=== PATIENT | female | born 1980 | race Two or more races ===

== ENCOUNTER 2018-12-05 15:37 | Emergency (ER) | payer OTHER ==
[2018-12-05 15:42] VITALS: BP 148/90; PULSE 86; TEMP 97.7; BMI 20.3
[2018-12-05] MEDS ORDERED: ONDANSETRON 4 MG/2 ML VIAL IVPUSH ONE (15:42)
[2018-12-05] MEDS ORDERED: SODIUM CHLORIDE 1,000 ML IV STA (15:42)
[2018-12-05] MEDS ORDERED: morphine CARPU-JECT 2 MG/1 ML DISP.SYRIN IVPUSH ONE (15:45)
--- NOTE | 2018-12-05 15:45 | PDOC ---
Rapid Medical Evaluation Chief Complaint: Vaginal Bleeding Time Seen by Provider: 12/05/18 15:38 Medical Evaluation: Allergies Allergy/AdvReac Type Severity Reaction Status Date / Time No Known Allergies Allergy Verified 12/05/18 15:42 Vital Signs Temp Pulse Resp BP Pulse Ox 97.7 F 86 18 148/90 100 12/05/18 15:40 12/05/18 15:40 12/05/18 15:40 12/05/18 15:40 12/05/18 15:40 12/05/18 15:44 Pt c/o: Lower abd cramping x 3 hrs with nausea, hx q monthly secondary to fibroids and endometriosis, currently on OCP Pt on brief exam: vss, lower abd tenderness Pt ordered for: labs, urine, ivf, ms04, and zofran Pt to proceed to the ED Discharge Disposition - Diagnosis Fibroids - Discharge Dispostion Disposition: HOME Condition at time of disposition: Stable - Prescriptions Prescriptions: Diclofenac Sodium 75 mg PO BID #20 tablet.dr - Referrals Referrals: Anisha Connolly MD [Staff Physician] - - Patient Instructions Printed Discharge Instructions: DI for Uterine Fibroids - Post Discharge Activity
[2018-12-05] MEDS ORDERED: morphine SULFATE 4 MG/ML VIAL ONE (16:26)
[2018-12-05] MEDS ORDERED: ONDANSETRON 4 MG/2 ML VIAL ONE (16:26)
--- NOTE | 2018-12-05 16:35 | PDOC ---
History of Present Illness - General Chief Complaint: Vaginal Bleeding Stated Complaint: EDOMETRIOSIS/FIBROIDES Time Seen by Provider: 12/05/18 15:38 - History of Present Illness Initial Comments: 12/05/18 16:27 CHIEF COMPLAINT: lower abdominal pain HISTORY OF PRESENT ILLNESS: with hx of endometriosis and fibroids presents to ED with significant lower abdominal pain. Patient reports she has these symptoms every other month during her period, and this episode started today approximately a couple hours ago when her period started. Patient reports she is followed by an OB at [facility], Dr. White and had an US completed 2 weeks ago. No recent travel or sick contacts. PAST MEDICAL HISTORY: Denies past medical history FAMILY HISTORY: Denies SOCIAL HISTORY: Denies tobacco, alcohol, illicit drug use. SURGICAL HISTORY: Denies ALLERGIES: No known drug allergies REVIEW OF SYSTEMS General/Constitutional: Denies fever or chills. Denies weakness, weight change. HEENT: Denies change in vision. Denies ear pain or discharge. Denies sore throat. Cardiovascular: Denies chest pain or shortness of breath. Respiratory: Denies cough, wheezing, or hemoptysis. Gastrointestinal: Pelvic pain with nausea and vomiting. Denies diarrhea or constipation. Denies rectal bleeding. Genitourinary: Denies dysuria, frequency, or change in urination. Musculoskeletal: Denies joint or muscle swelling or pain. Denies neck or back pain. Skin and breasts: Denies rash or easy bruising. Neurologic: Denies headache, vertigo, loss of consciousness, or loss of sensation. PHYSICAL EXAM General Appearance: Well-appearing, appropriately dressed. No apparent distress. HEENT: EOMI, PERRLA, normal ENT inspection, normal voice, TMs normal, pharynx normal. No conjunctival pallor. No photophobia, scleral icterus. Respiratory/Chest: Lungs CTAB. No shortness of breath, chest tenderness, respiratory distress, accessory muscle use. No crackles, rales, rhonchi, stridor , wheezing, dullness Cardiovascular: RRR. S1, S2. Gastrointestinal/Abdominal: Normal bowel sounds. Abdomen soft, non-distended. No tenderness or rebound tenderness. No organomegaly, pulsatile mass, guarding , hernia, hepatomegaly, splenomegaly. Musculoskeletal/Extremities: Normal inspection. FROM of all extremities, normal capillary refill. Pelvis Stable. No CVA tenderness. No tenderness to extremities, pedal edema, swelling, erythema or deformity. Integumentary: Appropriate color, dry, warm. No cyanosis, erythema, jaundice or rash Neurologic: roll on man II-XII intact. Fully oriented, alert. Appropriate mood/affect. Motor strength 5/5. No appreciable EOM palsy, facial droop or sensory deficit. 12/05/18 16:39 Past History - Past Medical History Allergies/Adverse Reactions: Allergies Allergy/AdvReac Type Severity Reaction Status Date / Time No Known Allergies Allergy Verified 12/05/18 15:42 Home Medications: Ambulatory Orders Diclofenac Sodium 75 mg PO BID #20 tablet. 12/05/18 - Suicide/Smoking/Psychosocial Hx Smoking History: Never smoked Have you smoked in the past 12 months: No Information on smoking cessation initiated: No Hx Alcohol Use: No Drug/Substance Use Hx: No *Physical Exam - Vital Signs Last Vital Signs Temp Pulse Resp BP Pulse Ox 97.7 F 86 18 148/90 100 12/05/18 15:40 12/05/18 15:40 12/05/18 15:40 12/05/18 15:40 12/05/18 15:40 ED Treatment Course - LABORATORY CBC & Chemistry Diagram: 12/05/18 16:22 12/05/18 16:22 Medical Decision Making - Medical Decision Making 12/05/18 16:39 with hx of endometriosis and fibroids presents to ED with significant lower abdominal pain. -labs -urine -US 12/05/18 19:29 Patient given morphine ordered in RME. Continues to complain of pain. US shows multiple fibroids to uterus. Toradol given. Patient states she will f/u with her [employer]INATOR for continued mgmt of her fibroids. States she has considered hysterectomy given significant hx of fibroids and endometriosis. Advised patient of sxs for return to ER. *DC/Admit/Observation/Transfer Diagnosis at time of Disposition: Fibroids - Discharge Dispostion Disposition: HOME Condition at time of disposition: Stable Decision to Admit order: No - Prescriptions Prescriptions: Diclofenac Sodium 75 mg PO BID #20 tablet.dr - Referrals Referrals: Anisha Connolly MD [Staff Physician] - - Patient Instructions Printed Discharge Instructions: DI for Uterine Fibroids - Post Discharge Activity
[2018-12-05 16:36] LABS: BASO % 0.5 % (0-2.0); EOS % 1.4 % (0-4.5); HEMATOCRIT 38.5 % (32.4-45.2); HEMOGLOBIN 12.7 GM/dL (10.7-15.3); MCH 28.3 pg (25.7-33.7); MCHC 32.9 g/dl (32.0-36.0); MEAN PLT VOLUME 6.4 fl (7.5-11.1); MONO % 4.3 % (3.8-10.2); NEUT % 77.8 % (42.8-82.8); PLATELET COUNT 520 K/MM3 (134-434); RBC 4.48 M/mm3 (3.60-5.2); RDW 13.3 % (11.6-15.6); WHITE BLOOD COUNT 9.8 K/mm3 (4.0-10.0)
[2018-12-05] MEDS ORDERED: DIPHTH,PERTUSS(ACELL),TET 0.5 ML DISP.SYRIN IM ONE (16:44)
[2018-12-05 17:07] LABS: ALBUMIN 3.2 g/dl (3.4-5.0); BILIRUBIN,TOTAL 0.5 mg/dL (0.2-1); BLOOD UREA NITROGEN 7.5 mg/dL (7-18); CALCIUM 9.4 mg/dL (8.5-10.1); CREATININE 0.7 mg/dL (0.55-1.3); TOT PROT 7.6 g/dl (6.4-8.2)
[2018-12-05 17:08] LABS: POTASSIUM 4.4 mmol/L (3.5-5.1)
[2018-12-05] MEDS ORDERED: KETOROLAC TROMETHAMINE 30 MG/1 ML VIAL IM ONE (17:44)
[2018-12-05 17:52] LABS: EPI CELLS 11.8 /HPF (0-5/HPF); HYALINE CASTS 15 /lpf (0-8); PH,URINE 6.5 (5.0-8.0); URINE APPEARANCE CLEAR; URINE BACTERIA 133.6 /hpf (NEGATIVE); URINE BILIRUBIN NEGATIVE (NEGATIVE); URINE COLOR YELLOW; URINE GLUCOSE (UA) NEGATIVE (NEGATIVE); URINE KETONE 2+ (NEGATIVE); URINE LEUK ESTERASE NEGATIVE (NEGATIVE); URINE NITRITE NEGATIVE (NEGATIVE); URINE PROTEIN TRACE (NEGATIVE); URINE RBC 4 /hpf (0-4); URINE WBC 4 /hpf (0-5)
[2018-12-05] MEDS ORDERED: KETOROLAC TROMETHAMINE 30 MG/1 ML VIAL ONE (18:29)
[2018-12-05 19:08] LABS: PLATELET ESTIMATE INCREASED
== END 2018-12-05 19:18 | disposition home or self-care (01) ==
LOC: JER 15:37
PROC: 3E0333Z Introduction of Anti-inflammatory into Peripheral Vein, Percutaneous Approach (ICD-10-PCS; principal; 2018-12-05)
PROC: 3E033NZ Introduction of Analgesics, Hypnotics, Sedatives into Peripheral Vein, Percutaneous Approach (ICD-10-PCS; 2018-12-05)
PROC: 3E033GC Introduction of Other Therapeutic Substance into Peripheral Vein, Percutaneous Approach (ICD-10-PCS; 2018-12-05)
DX: D25.9 Leiomyoma of uterus, unspecified (principal); R10.30 Lower abdominal pain, unspecified
CPT/HCPCS: 36415; 76856-TC; 80053; 81003; 84703; 85025; 87086; 87491; 87591; 99282-25

== ENCOUNTER 2019-05-06 04:08 | Emergency (ER) | payer OTHER ==
--- NOTE | 2019-05-06 04:12 | PDOC ---
History of Present Illness - General Stated Complaint: FLU-LIKE SYMPTOMS History Source: Patient Exam Limitations: No Limitations - History of Present Illness Initial Comments: 05/06/19 04:11 PCP: None HPI: 38yo F PMH GERD, endometriosis and fibroids presenting with cough, fever, chills, vomiting, diarrhea, headache, throat pain, nasal congestion, cough, body aches, since midday yesterday (16 hours). Patient has two nieces recently diagnosed with the flu as well as her own child. She presents to the ED for evaluation because of a fever of 103 at home. She did not take any antipyretic medications. Only took some Mucinex at 10PM. Reports people are still sick at home. No bloody or dark emesis / stool. Non-productive cough. All: NKDA Meds: OCPs PMH: as above PSH: Fibroid removal Past History - Travel Traveled outside of the country in the last 30 days: No Close contact w/someone who was outside of country & ill: No - Past Medical History Allergies/Adverse Reactions: Allergies Allergy/AdvReac Type Severity Reaction Status Date / Time No Known Allergies Allergy Verified 05/06/19 04:44 Home Medications: Ambulatory Orders Diclofenac Sodium 75 mg PO BID #20 tablet. 12/05/18 Oseltamivir Phosphate [Tamiflu] 75 mg PO BID #10 capsule 05/06/19 COPD: No - Psycho Social/Smoking Cessation Hx Smoking History: Never smoked Have you smoked in the past 12 months: No Hx Alcohol Use: No Drug/Substance Use Hx: No Review of Systems - Review of Systems Able to Perform ROS?: Yes Is the patient limited Palestinian proficient: Yes Constitutional: Yes: Chills, Diaphoresis, Fever, Malaise. No: Weakness HEENTM: Yes: Nose Congestion, Throat Pain Respiratory: Yes: Cough. No: Shortness of Breath, Wheezing, Productive cough Cardiac (ROS): Yes: Chest Pain (asociated with cough). No: Edema, Irregular Heart Rate, Palpitations, Syncope, Chest Tightness ABD/GI: Yes: Diarrhea, Nausea, Poor Appetite, Vomiting. No: Blood Streaked Bowels, Constipated, Rectal Bleeding, Tarry Stools : No: Burning, Dysuria, Discharge, Incontinence Musculoskeletal: No: Back Pain, Muscle Pain, Muscle Weakness Integumentary: No: Bruising, Erythema, Pruritus, Rash Neurological: Yes: Headache. No: Numbness, Tingling, Weakness Hematologic/Lymphatic: No: Anemia, Blood Clots, Easy Bleeding All Other Systems: Reviewed and Negative *Physical Exam - Physical Exam 05/06/19 04:43 Patient febrile but otherwise HDS WDWN woman, appears stated age, sitting in hospital bed, coughing NCAT, MMM, EOMI, trachea midline, no rhinorrhea, PERRL RRR, nl s1s2, no murmurs appreciated Crackles at bilateral lung bases, otherwise clear, good WOB, intermittent non- productive cough Soft, diffusely tender, non-distended WWP, 2+ radial and PT pulses, no clubbing / cyanosis / edema CN grossly intact, normal gait, MAEE Medical Decision Making - Medical Decision Making 05/06/19 04:34 38yo F with no significant PMH presenting with flu symptoms in the setting of multiple children at home diagnosed with the flu over the past few days. Febrile but otherwise HDS. DDX: extremely high suspicion for the flu, will treat empirically. CXR for lung crackles to assess for possible concurrent pneumonia. - Tylenol - Zofran SL - Tamiflu - CXR Dispo: Home 05/06/19 04:48 - CXR without effusions, infiltrates, consolidation, PTX, normal contours and bones - RX for Tamiflu sent to patient's pharmacy 05/06/19 05:00 - 30mg IM Toradol ordered 05/06/19 05:30 - Patient discharged home Discharge - Discharge Information Problems reviewed: Yes Clinical Impression/Diagnosis: Influenza Condition: Improved Disposition: HOME - Admission No - Additional Discharge Information Prescriptions: Oseltamivir Phosphate [Tamiflu] 75 mg PO BID #10 capsule - Follow up/Referral Referrals: [facility] [place] [Provider Group] - Patient Discharge Instructions Patient Printed Discharge Instructions: DI for Viral Upper Respiratory Infection -- Adult Additional Instructions: You were seen and evaluated in the ED for influenza. You were treated with nausea medication, Tamiflu, and Tylenol for your fever. A prescription has been sent to your pharmacy for Tamiflu. Please pick this up firs thing tomorrow morning and take it as directed for the next 5 days. Follow up with the provided primary care clinic in the next several days if symptoms persist. Please return to the ED for any new or concerning symptoms. These may include but are not limited to: worsening nausea and vomiting with inability to tolerate medication or fluids, fever that does not respond to Tylenol, weakness / general worsening. - Post Discharge Activity
--- NOTE | 2019-05-06 04:17 | PDOC ---
Attending Attestation - Resident Resident Name: Darron Mcknight - ED Attending Attestation I have performed the following: I have examined & evaluated the patient, The case was reviewed & discussed with the resident, I agree w/resident's findings & plan - HPI HPI: 05/06/19 04:38 see resident hpi - Physicial Exam PE: 05/06/19 04:38 agree with resident exam - Medical Decision Making 05/06/19 04:38 38-year-old female with flulike symptoms and multiple family members diagnosed with flu recently Chest x-ray shows no focal infiltrate Patient will be discharged on antiviral for presumed influenza illness as well as Zofran for nausea
[2019-05-06] MEDS ORDERED: OSELTAMIVIR PHOSPHATE 75 MG CAPSULE PO ONE (04:35)
[2019-05-06] MEDS ORDERED: ACETAMINOPHEN 500 MG TABLET (FP) PO ONE (04:36)
[2019-05-06] MEDS ORDERED: ONDANSETRON 4 MG TABLET PO PRN (04:36)
[2019-05-06 04:44] VITALS: BP 129/90; PULSE 94; TEMP 100.5; BMI 19.0
[2019-05-06] MEDS ORDERED: ACETAMINOPHEN 325 MG TABLET (FP) ONE (04:46)
[2019-05-06] MEDS ORDERED: OSELTAMIVIR PHOSPHATE 75 MG CAPSULE ONE (04:46)
[2019-05-06] MEDS ORDERED: ONDANSETRON *ODT* 4 MG TABLET ONE (04:46)
[2019-05-06] MEDS ORDERED: KETOROLAC TROMETHAMINE 30 MG/1 ML VIAL IM ONE (04:58)
[2019-05-06] MEDS ORDERED: KETOROLAC TROMETHAMINE 30 MG/1 ML VIAL ONE (05:04)
== END 2019-05-06 05:55 | disposition home or self-care (01) ==
LOC: JER 04:08
PROC: 3E0233Z Introduction of Anti-inflammatory into Muscle, Percutaneous Approach (ICD-10-PCS; principal; 2019-05-06)
DX: J11.1 Influenza due to unidentified influenza virus with other respiratory manifestations (principal)
CPT/HCPCS: 71046-TC-FY; 99281-25

== ENCOUNTER 2023-04-18 13:41 | Emergency (ER) | payer OTHER ==
[2023-04-18 14:02] VITALS: BMI 20.9
[2023-04-18] MEDS ORDERED: KETOROLAC TROMETHAMINE 30 MG/1 ML VIAL IVPUSH ONE (15:15)
[2023-04-18] MEDS ORDERED: morphine CARPU-JECT 2 MG/1 ML DISP.SYRIN IVPUSH ONE (15:15)
[2023-04-18] MEDS ORDERED: KETOROLAC TROMETHAMINE 30 MG/1 ML VIAL ONE (15:35)
[2023-04-18 15:56] LABS: BASO % 0.7 % (0-2.0); EOS % 3.3 % (0-4.5); HEMATOCRIT 28.4 % (32.4-45.2); HEMOGLOBIN 9.3 GM/dL (10.7-15.3); LYMPH % 15.5 % (8-40); MCH 25.6 pg (25.7-33.7); MCHC 32.7 g/dl (32.0-36.0); MEAN CELL VOLUME 78.3 fl (80-96); MEAN PLT VOLUME 6.5 fl (7.5-11.1); MONO % 6.8 % (3.8-10.2); NEUT % 73.7 % (42.8-82.8); PLATELET COUNT 514 10^3/uL (134-434); RBC 3.63 M/mm3 (3.60-5.2); WHITE BLOOD COUNT 9.3 K/mm3 (4.0-10.0)
[2023-04-18 16:19] LABS: POTASSIUM 4.5 mmol/L (3.5-5.1)
[2023-04-18 16:21] LABS: ALBUMIN 3.7 g/dl (3.4-5.0); CALCIUM 8.8 mg/dL (8.5-10.1)
[2023-04-18 16:22] LABS: BLOOD UREA NITROGEN 7.2 mg/dL (7-18)
[2023-04-18 16:24] LABS: CREATININE 0.6 mg/dL (0.55-1.3)
[2023-04-18 16:26] LABS: BILIRUBIN,TOTAL 0.6 mg/dL (0.2-1); TOT PROT 7.5 g/dl (6.4-8.2)
[2023-04-18 17:36] VITALS: BP 152/90; PULSE 88; RESP 18; TEMP 99.3
== END 2023-04-18 18:18 | disposition home or self-care (01) ==
LOC: JER 13:41
PROC: 3E033NZ Introduction of Analgesics, Hypnotics, Sedatives into Peripheral Vein, Percutaneous Approach (ICD-10-PCS; principal; 2023-04-18)
PROC: 3E033GC Introduction of Other Therapeutic Substance into Peripheral Vein, Percutaneous Approach (ICD-10-PCS; 2023-04-18)
DX: N92.0 Excessive and frequent menstruation with regular cycle (principal)
CPT/HCPCS: 36415; 80053; 84703; 85025; 99284-25